=== PATIENT | male | born 1980 | race Caucasian/White ===

== ENCOUNTER 2016-12-12 16:08 | Emergency (ER) | payer MEDICARE, MEDICAID ==
[2016-12-12] MEDS ORDERED: Haloperidol Lactate 5 mg/mL 1mL Vial IVP ONE (16:45)
[2016-12-12] MEDS ORDERED: Haloperidol Lactate 5 mg/mL 1mL Vial ONE (16:46)
--- NOTE | 2016-12-12 16:55 | ED Physician Chart ---
ED Chief Complaint/HPI - Patient Information Date Seen:: 12/12/16 Time Seen:: 16:17 Chief Complaint:: chest congestion Allergies:: Allergies Allergy/AdvReac Type Severity Reaction Status Date / Time No Known Allergies Allergy Verified 12/12/16 16:11 Vitals:: Vital Signs - 8 hr 12/12/16 16:13 Temp 97.2 F HR 104 RR 18 BP 125/84 O2 Sat % 96 Historian:: Family Member (SISTER) Review:: Nurse's Note Reviewed ED Review of Systems - Review of Systems General/Constitutional: Other (THE PT IS UNABLE TO GIVE A REVIEW OF SYSTEMS) ED Past Medical History - Past Medical History Obtainable: Yes Past Medical History: Other (DOWNS SYNDROME ) Family History: None Social History: Non Smoker, No Alcohol, No Drug Use, Lives With Parents Surgical History: None Psychiatricy History: None Medication: Reviewed Family Medical History - Family Member Mother History Unknown: Yes ED Physical Exam - Physical Examination General/Constitutional: Awake, Well-developed, well-nourished, Alert, No distress, GCS 15, Non-toxic appearing, Ambulatory Other Head comments:: THERE ARE OLD INJURY EVIDENCE OF THE HEAD WITH MULTIPLE HEMATOMA AREA ON THE FRONT OF THE HEAD. Eyes: Lids, conjuctiva normal, PERRL, EOMI Skin: No ecchymosis, Well hydrated, No lymphadenopathy Other Skin comments:: ON THE ENTIRE BACK IS COVERED WITH A PUS FILLED RASH WITH RED AREAS AROUND THEM. ENMT: External ears, nose nl, Nasal exam nl, Lips, teeth, gums nl Neck: Nontender, Full ROM w/o pain, No JVD, No nuchal rigidity, No bruit, No mass, No stridor Respiratory: Nl effort/Exclusion, Clear to Auscultation, No Wheeze/Rhonchi/Rales Cardio Vascular: RRR, No murmur, gallop, rubs, NL S1 S2 GI: No tenderness/rebounding/guarding, No organomegaly, No hernia, Normal BS's, Nondistended, No mass/bruits, No McBurney tenderness : No CVA tenderness Extremities: No tenderness or effusion, Full ROM, normal strength in all extremities, No edema, Normal digits & nails Neuro/Psych: Alert/oriented, DTR's symmetric, Normal sensory exam, Normal motor strength, Judgement/insight normal, Mood normal, Normal gait, No focal deficits Misc: normal gait, Normal back, No paraspinal tenderness ED Labs/Radiology/EKG Results - Lab Results Results: Abnormal Lab Results 12/12/16 12/12/16 12/12/16 16:55 16:55 16:55 WBC 9.1 RBC 5.31 Hgb 17.6 Hct 52.5 MCV 98.8 MCH 33.2 H MCHC Differential 33.5 RDW 13.8 Plt Count 220 MPV 8.2 Neutrophils % 61.9 Lymphocytes % 25.8 Monocytes % 9.2 Eosinophils % 1.5 Basophils % 1.6 Sodium 133 L Potassium 3.9 Chloride 100 Carbon Dioxide 26.3 Anion Gap 10.6 BUN 15 Creatinine 0.8 Est GFR ( Amer) > 60.0 Est GFR (Non-Af Amer) > 60.0 BUN/Creatinine Ratio 18.8 Glucose 119 H Calcium 9.5 Total Bilirubin 1.2 H AST 41 H ALT 37 Alkaline Phosphatase 79 Troponin I 0.01 Total Protein 7.4 Albumin 4.1 L Globulin 3.3 Albumin/Globulin Ratio 1.2 TSH 12/12/16 16:55 WBC RBC Hgb Hct MCV MCH MCHC Differential RDW Plt Count MPV Neutrophils % Lymphocytes % Monocytes % Eosinophils % Basophils % Sodium Potassium Chloride Carbon Dioxide Anion Gap BUN Creatinine Est GFR ( Amer) Est GFR (Non-Af Amer) BUN/Creatinine Ratio Glucose Calcium Total Bilirubin AST ALT Alkaline Phosphatase Troponin I Total Protein Albumin Globulin Albumin/Globulin Ratio TSH 1.38 - Radiology Results Results: CHEST X-RAY = NAD ED Assessment - Assessment General Assessment: INFECTED RASH ON THE BACK ED Septic Shock - . Is Septic Shock (SBP<90, OR Lactate>4 mmol\L) present?: No - <6hrs of presentation: Vital Signs: Vital Signs - 8 hr 12/12/16 16:13 Temp 97.2 F HR 104 RR 18 BP 125/84 O2 Sat % 96 ED Reassessment (Disposition) - Reassessment Reassessment Condition:: Improved - Diagnosis Diagnosis:: INFECTED RASH ON THE BACK - Aftercare/Follow up Instructions Aftercare/Follow-Up Instructions:: Counseled pt regarding lab results/diagnosis & need follow up, Refer to Discharge Instructions, Counseled pt & family regarding lab results/diagnosis & need follow up - Patient Disposition Discharge/Transfer:: Home Condition at Disposition:: Improved ED Discharge Plan - Patient Disposition Admit/Discharge/Transfer: PT DISCHARGED HOME Prescriptions: Azithromycin [Zithromax] 250 mg PO DAILY #1 tab Prednisone 10 mg PO BID 2 Days tab.ds.pk Instructions: Rash Accepting Physician: Ritchie Mora [Active] - 1-3 Days
[2016-12-12 17:04] LABS: % BASOPHILS 1.6 % (0.0-2.0); % EOSINOPHILS 1.5 % (0.0-5.0); % LYMPHOCYTES 25.8 % (20.0-50.0); % MONOCYTES 9.2 % (2.0-10.0); % NEUTROPHILS 61.9 % (40.0-80.0); HEMATOCRIT 52.5 % (41.0-60); HEMOGLOBIN 17.6 gm/dL (12-16); MEAN CELL VOLUME 98.8 fl (80-99); MEAN CORPUSCULAR HEMOGLOBIN 33.2 pg (26.0-30.0); MEAN CORPUSCULAR HGB CONC 33.5 pg (28.0-36.0); MEAN PLATELET VOLUME 8.2 fl; NEUTROPHILE ABSOLUTE 5.8 Th/cmm (1.8-8.0); PLATELET COUNT 220 Th/cmm (150-400); RED BLOOD COUNT 5.31 Mil/cmm (4.30-5.70); RED CELL DISTRIBUTION WIDTH 13.8 % (11.5-20.0); WHITE BLOOD COUNT 9.1 Th/cmm (4.8-10.8)
[2016-12-12 17:22] LABS: ALB/GLOB RATIO 1.2 (1.0-1.8); ALKALINE PHOSPHATASE 79 U/L (34-104); ANION GAP 10.6 (7.0-16.0); BILIRUBIN,TOTAL 1.2 mg/dL (0.3-1.0); BUN - UREA NITROGEN 15 mg/dL (7-25); BUN/CREATININE RATIO 18.8; CALCIUM SERUM 9.5 mg/dL (8.6-10.3); CARBON DIOXIDE 26.3 mEq/L (21.0-31.0); CHLORIDE 100 mEq/L (98-107); CREATININE - SERUM 0.8 mg/dL (0.7-1.3); GLUCOSE 119 mg/dL (70-105); POTASSIUM SERUM 3.9 mEq/L (3.5-5.1); SGOT 41 U/L (13-39); SGPT/ALT 37 U/L (7-52); SODIUM SERUM 133 mEq/L (136-145)
[2016-12-12] MEDS ORDERED: Flumazenil 0.1 m/mL 5mL Vial IVP STA (18:36)
--- NOTE | 2016-12-13 07:46 | Diagnostic Imaging Report ---
Chest: Portable one view. HISTORY: Chest congestion. Findings: Portable examination of the chest at 1723 hours was reviewed, no prior studies available for comparison. The study demonstrates mild congestion. The costophrenic angles are clear. Bony thorax intact. Mediastinal structures midline. No acute pulmonic infiltrates are noted. IMPRESSION: Mild congestion no acute infiltrates.
--- NOTE | 2016-12-13 07:56 | Diagnostic Imaging Report ---
CT Examination of Brain without Contrast History: Trauma Total DLP equals 274 CTDI equals 42.5 Multiple contiguous sections of the brain were obtained from base skull to the vertex without the administration of the contrast material ,no prior studies available for comparison. The study is limited due to motion artifact patient and unable to cooperate of the study. There is evidence for arachnoid cyst st left temporal lobe. The study demonstrates abnormal density brain parenchyma. There is no evidence for hemorrhage or midline shift or edema. The cerebellum is intact. The ventricles are normal. The paranasal sinuses are well aerated. The bony calvarium is intact. Soft tissue swelling is noted in the frontal area bilaterally. The paranasal sinuses are well aerated. Impression: 1. Normal examination of brain. 2. Soft tissue swelling frontal area.
== END 2016-12-12 20:45 | disposition home or self-care (01) ==
LOC: ER 16:08
DX: R21 Rash and other nonspecific skin eruption (principal)
CPT/HCPCS: 99285; 96374; 96375; 71010; 70450; 84484; 36415; 84443; 85025; 80053; 87040 ×2; J2060; J0696; J1630